=== PATIENT | female | born 1960 | race Caucasian/White ===

== ENCOUNTER 2017-02-22 19:13 | Emergency (ER) | payer BC ==
[2017-02-22 19:23] VITALS: PULSE 87; TEMP 98.9; BMI 24.4
[2017-02-22] MEDS ORDERED: IBUPROFEN 600 MG TABLET (FP) PO ONE ×2 (20:18→20:21)
--- NOTE | 2017-02-22 20:22 | PDOC ---
History of Present Illness - General Chief Complaint: Laceration Stated Complaint: LH 2ND FINGER LAC Time Seen by Provider: 02/22/17 19:17 History Source: Patient Exam Limitations: No Limitations - History of Present Illness Initial Comments: 02/22/17 21:50 56 year old female, Right hand dominant, no past medical history, p/w left 2nd digit distal avulsion. Pt was chopping kale for a salad, when she accidentally slipped. Sustained a small avulsion skin injury to distal 2nd left digit. Lost a small portion of the nail. Pt is allergic to tetanus. Able to flex and extend the entire digit. Denies numbness, weakness. Occurred today. Past History - Past Medical History Allergies/Adverse Reactions: Allergies Allergy/AdvReac Type Severity Reaction Status Date / Time tetanus and diphtheria Allergy Verified 02/22/17 19:20 toxoids Home Medications: Ambulatory Orders NK [No Known Home Medication] 02/22/17 COPD: No - Immunization History Immunization Up to Date: (ALLERGIC) - Suicide/Smoking/Psychosocial Hx Smoking History: Never smoked Review of Systems - Review of Systems Able to Perform ROS?: Yes Comments:: 02/22/17 21:54 GENERAL/CONSTITUTIONAL: No fever, weakness. HEAD, EYES, EARS, NOSE AND THROAT: No change in vision. No ear pain or discharge. No sore throat. CARDIOVASCULAR: No chest pain or shortness of breath. RESPIRATORY: No cough, wheezing, or hemoptysis. GASTROINTESTINAL: No abdominal pain, nausea, vomiting, diarrhea, or decreased PO intolerance. GENITOURINARY: No dysuria, frequency, or change in urination. MUSCULOSKELETAL: No joint or muscle swelling or pain. No neck or back pain. SKIN: left 2nd digit finger skin avulsion NEUROLOGIC: No headache, vertigo, loss of consciousness, or change in strength/ sensation. ENDOCRINE: No increased thirst. No abnormal weight change. HEMATOLOGIC/LYMPHATIC: No anemia, easy bleeding, or history of blood clots. ALLERGIC/IMMUNOLOGIC: No hives or skin allergy. *Physical Exam - Vital Signs Last Vital Signs Temp Pulse Resp BP Pulse Ox 98.9 F 87 18 193/125 96 02/22/17 19:21 02/22/17 19:21 02/22/17 19:21 02/22/17 19:21 02/22/17 19:21 - Physical Exam Comments: 02/22/17 21:55 GENERAL: Awake, alert, and fully oriented, in no acute distress. HEAD: No signs of trauma EYES: PERRLA, EOMI, sclera anicteric, conjunctiva clear ENT: Auricles normal inspection, hearing grossly normal, nares patent, NECK: Normal ROM, supple EXTREMITIES: Normal range of motion, no edema. No clubbing or cyanosis. No cords, erythema, or tenderness LUE: 2+ radial pulse. sensation intact throughout. 5/5 strength - median/radian/ ulnar nerve. < 2 sec cap refill. Pt will full flexion and extension of all digits. Small skin avulsion distal to the left 2nd digit with some loss of nail. No lacerations. NEUROLOGICAL: Cranial nerves II through XII grossly intact. Normal speech, normal gait SKIN: Warm, Dry, normal turgor, no rashes or lesions noted. Procedures - Additional Procedures Progress: 02/22/17 21:56 Wound soaked in normal saline and beta - iodine Dermabond applied to the nail bed with the bleeding. Medical Decision Making - Medical Decision Making 02/22/17 21:57 Vital Signs Temp Pulse Resp BP Pulse Ox 98.9 F 87 18 157/103 96 02/22/17 19:21 02/22/17 19:21 02/22/17 19:21 02/22/17 20:25 02/22/17 19:21 Pt is currently taking augmentin for her URI. Has five more days. I had advised her to take the augmentin for wound prophylaxis. The wound had stopped bleeding with the dermabond. Xeroform was applied. Fever and wound precautions given. Discharge diagnosis: finger avulsion I discussed the physical exam findings, ancillary test results and final diagnoses with the patient. I answered all of the patient's questions. The patient was satisfied with the care received and felt comfortable with the discharge plan and treatment plan. The patient will call their primary care physician within 24 hours to arrange follow-up and will return to the Emergency Department with any new, persistant or worsening symptoms. *DC/Admit/Observation/Transfer Diagnosis at time of Disposition: Finger avulsion Qualifiers: Encounter type: initial encounter Qualified Code(s): S61.209A - Unspecified open wound of unspecified finger without damage to nail, initial encounter - Discharge Dispostion Disposition: HOME Condition at time of disposition: Stable Admit: No - Referrals - Patient Instructions Printed Discharge Instructions: DI for Avulsion Laceration (Not Requiring Sutures) Additional Instructions: Please cover your wound with a xeroform dressing and gauze. Change dressing once daily. Elevate the hand. Continue to take your augmentin every 12 hours as prior. 600 mg ibuprofen every 6 hours as needed for pain. If you notice any redness or pus or fever, please call your doctor or return to the ER for further evaluation. - Post Discharge Activity
[2017-02-22 20:26] VITALS: BP 157/103
== END 2017-02-22 20:29 | disposition home or self-care (01) ==
LOC: FER 19:13
PROC: 0HQGXZZ Repair Left Hand Skin, External Approach (ICD-10-PCS; principal; 2017-02-22)
DX: S61.311A Laceration without foreign body of left index finger with damage to nail, initial encounter (principal); W26.0XXA Contact with knife, initial encounter; Y93.G3 Activity, cooking and baking; Y92.000 Kitchen of unspecified non-institutional (private) residence as the place of occurrence of the external cause
CPT/HCPCS: 99282-25

== ENCOUNTER 2019-01-18 20:11 | Emergency (ER) | payer BC ==
[2019-01-18 20:22] VITALS: BP 155/84; PULSE 100; TEMP 98.3; BMI 23.4
[2019-01-18] MEDS ORDERED: KETOROLAC TROMETHAMINE 60 MG/2 ML VIAL IM ONE (20:36)
[2019-01-18] MEDS ORDERED: KETOROLAC TROMETHAMINE 60 MG/2 ML VIAL ONE (20:37)
--- NOTE | 2019-01-18 21:06 | PDOC ---
Documentation entered by Katarina Rodríguez SCRIBE, acting as scribe for Axel Price MD. Axel Price MD: This documentation has been prepared by the paulaibe, Katarina Rodríguez SCRIBE, under my direction and personally reviewed by me in its entirety. I confirm that the documentation accurately reflects all work, treatment, procedures, and medical decision making performed by me. History of Present Illness - General Chief Complaint: Injury Stated Complaint: LT SHOULDER INJURY Time Seen by Provider: 01/18/19 20:22 History Source: Patient Exam Limitations: No Limitations - History of Present Illness Initial Comments: 01/18/19 21:09 Patient is a 58 year old female who presents to the ED with an injury to her left shoulder. Patients states she was trying to get her [place] from her attic when she missed a step prompting her fall. Patient denies any trauma to her head or LOC. Patient denies any other injuries. PAST MEDICAL HISTORY: no significant history PAST SURGICAL HISTORY: no significant history FAMILY HISTORY: no pertinent history SOCIAL HISTORY: Pt lives with family and is employed. MEDICATIONS: reviewed ALLERGIES: tetanus and diphtheria toxoids General: No fevers or chills, no weakness, no weight loss HEENT: No change in vision. No sore throat,. No ear pain CardioVascular: No chest pain or shortness of breath Respiratory:No cough, or wheezing. Gastrointestinal: no nausea, vomiting, diarrhea or constipation, No rectal bleeding Genitourinary: No dysuria, hematuria, or frequency Musculoskeletal:+left shoulder pain No joint or swelling Neurologic: No headache, vertigo, dizziness or loss of consciousness Psychiatric: nor depression Skin: No rashes or easy bruising Endocrine: no increased thirst or abnormal weight change Allergic: no skin or latex allergy All other systems reviewed and normal General: Well-nourished well-developed individual, no acute distress HEENT: Throat: Normal, tonsils normal, no erythema or exudate Neck: Supple, no meningeal signs, no lymphadenopathy Eyes::Pupils equal reactive and round, extraocular motion intact Chest: Nontender to palpation Cardiac: S1-S2 normal, regular rate and rhythm, no murmurs rubs or gallops Respiratory: Lungs clear to auscultation bilateral Abdomen: Soft, nondistended, normal bowel sounds, nontender to palpation diffusely Extremities:+Tenderness on palpation of the anterior and lateral aspect of the shoulder with decreased range of motion secondary to pain, neurovascularly distal intact. Associated contusion with questionable mild deformity of the humeral head. Warm, dry, no cyanosis, clubbing, or edema Skin: No rashes Neuro: Alert and oriented x3, nonfocal exam, grossly intact, normal gait Psych: Normal mood and affect 01/18/19 21:03 Assessment and plan: This is a 58-year-old female who comes in complaining of left shoulder pain. Patient was climbing up some stairs to her attic when she lost her balance and fell landing on her left shoulder. Patient did not hit her head did not pass out denies any other injuries. Patient had a x-ray of her shoulder that does show a comminuted fracture of the humeral neck and head. Neurovascularly patient is intact. Patient put in a sling and given Toradol. Patient also given a prescription for oxycodone that was sent to her pharmacy a total of 20 tablets Patient was referred to Dr. Cantor for follow-up Past History - Past Medical History Allergies/Adverse Reactions: Allergies Allergy/AdvReac Type Severity Reaction Status Date / Time tetanus and diphtheria Allergy Verified 02/22/17 19:20 toxoids Home Medications: Ambulatory Orders Oxycodone HCl 5 mg PO Q4H PRN #20 capsule MDD 8 01/18/19 COPD: No - Immunization History Immunization Up to Date: No (ALLERGIC) - Psycho Social/Smoking Cessation Hx Smoking History: Never smoked *Physical Exam - Vital Signs Last Vital Signs Temp Pulse Resp BP Pulse Ox 98.3 F 100 H 18 155/84 100 01/18/19 20:13 01/18/19 20:13 01/18/19 20:13 01/18/19 20:13 01/18/19 20:13 ED Treatment Course - RADIOLOGY Radiology Studies Ordered: Category Date Time Status SHOULDER-LEFT [RAD] Stat Radiology 01/18/19 20:17 Taken - Medications Given in the ED: ED Medications Discontinued Medications Generic Name Dose Route Start Last Admin Trade Name Freq PRN Reason Stop Dose Admin Ketorolac Tromethamine 60 mg 01/18/19 20:36 01/18/19 20:39 Toradol Injection - IM 01/18/19 20:37 60 mg ONCE ONE Administration Discharge - Discharge Information Problems reviewed: Yes Clinical Impression/Diagnosis: Shoulder fracture, left Qualifiers: Encounter type: initial encounter Fracture type: closed Qualified Code(s): S42.92XA - Fracture of left shoulder girdle, part unspecified, initial encounter for closed fracture Condition: Stable Disposition: HOME - Admission No - Additional Discharge Information Prescriptions: Oxycodone HCl 5 mg PO Q4H PRN #20 capsule MDD 8 PRN Reason: Pain - Follow up/Referral Referrals: Akira Cantor MD [Staff Physician] - - Patient Discharge Instructions Additional Instructions: Take oxycodone as needed for the pain you can take 1 to 2 tablets as often as every 4-6 hours. Wear your sling until you see the orthopedist. Call the orthopedist Dr. Cantor on Sunday and get an appointment to follow-up. Return to the emergency department immediately with ANY new, persistent or worsening symptoms. Continue any medications as previously prescribed by your physician. You should follow up with your primary doctor as soon as possible regarding today's emergency department visit. . Please make sure your doctor reviews the results of your emergency evaluation. Thank you for coming to the Emergency Department today for your care. It was a pleasure to see you today. Please note that your evaluation is INCOMPLETE until you follow-up with your doctor. - Post Discharge Activity
== END 2019-01-18 21:09 | disposition home or self-care (01) ==
LOC: FER 20:11
PROC: 3E0233Z Introduction of Anti-inflammatory into Muscle, Percutaneous Approach (ICD-10-PCS; principal; 2019-01-18)
DX: S42.92XA Fracture of left shoulder girdle, part unspecified, initial encounter for closed fracture (principal); W11.XXXA Fall on and from ladder, initial encounter; Y92.009 Unspecified place in unspecified non-institutional (private) residence as the place of occurrence of the external cause; Y93.9 Activity, unspecified; Z88.8 Allergy status to other drugs, medicaments and biological substances
CPT/HCPCS: 73030-TC-LT-FY; 99282-25

== ENCOUNTER 2019-01-24 06:20 | Day surgery (SDC) | payer BC ==
[2019-01-22 15:05] VITALS: BMI 25.4
[2019-01-24] MEDS ORDERED: MIDAZOLAM HCL 2 MG/2 ML SINGLE DOSE VIAL ONE ×2 (07:31→07:49)
[2019-01-24] MEDS ORDERED: ROPIVACAINE HCL 0.5% 30ML VIAL ONE (07:31)
[2019-01-24] MEDS ORDERED: VANCOMYCIN 1,000 MG VIAL (RESTRICTED TO ID ONLY) ONE (07:36)
[2019-01-24] MEDS ORDERED: PROPOFOL 20 ML ONE ×7 (07:49→11:57)
[2019-01-24] MEDS ORDERED: SUCCINYLCHOLINE CHLORIDE 200 MG/10 ML SYRINGE ONE (07:49)
[2019-01-24] MEDS ORDERED: ceFAZolin SODIUM 1 GM VIAL ONE (08:06)
[2019-01-24] MEDS ORDERED: TRANEXAMIC ACID 1000 MG/10 ML VIAL ONE ×2 (08:08→08:54)
--- NOTE | 2019-01-24 13:40 | HP ---
CHIEF COMPLAINT: Left humerus fracture PCP: Dr. Olson HISTORY OF PRESENT ILLNESS: 58 year-old female with no reported significant PMH or PSH, with a left proximal humerus fracture and biceps tendon degeneration and tear,s/p ORIF proximal humerus fracture and biceps tenodesis today with Dr. Niño. PAST MEDICAL HISTORY: None reported PAST SURGICAL HISTORY: None reported Social History: Smoking: no Alcohol: wine with dinner Drugs: no Family history: mother HTN; father DMII, HTN Allergies Tetanus Vaccines and Toxoid Allergy (Severe, Verified 01/24/19 06:53) Swelling HOME MEDICATIONS: Home Medications Medication Instructions Recorded Oxycodone HCl 5 mg PO Q4H PRN #20 capsule MDD 8 01/18/19 Acetaminophen 1 - 2 tab PO ASDIR PRN 01/22/19 REVIEW OF SYSTEMS POST-OP CONSTITUTIONAL: +fever Absent: fever, chills, diaphoresis, generalized weakness, malaise, loss of appetite, weight change HEENT: Absent: rhinorrhea, nasal congestion, throat pain, throat swelling, difficulty swallowing, mouth swelling, ear pain, eye pain, visual changes CARDIOVASCULAR: Absent: chest pain, syncope, palpitations, irregular heart rate, lightheadedness , peripheral edema RESPIRATORY: Absent: cough, shortness of breath, dyspnea with exertion, orthopnea, wheezing, stridor, hemoptysis GASTROINTESTINAL: Absent: abdominal pain, abdominal distension, nausea, vomiting, diarrhea, constipation, melena, hematochezia GENITOURINARY: Absent: dysuria, frequency, urgency, hesitancy, hematuria, flank pain, genital pain MUSCULOSKELETAL: +pain at surgical site Absent: myalgia, arthralgia, joint swelling, back pain, neck pain SKIN: Absent: rash, itching, pallor HEMATOLOGIC/IMMUNOLOGIC: Absent: easy bleeding, easy bruising, lymphadenopathy, frequent infections ENDOCRINE: Absent: unexplained weight gain, unexplained weight loss, heat intolerance, cold intolerance NEUROLOGIC: Absent: headache, focal weakness or paresthesias, dizziness, unsteady gait, seizure, mental status changes, bladder or bowel incontinence PSYCHIATRIC: +expression of feeling very anxious Absent: depression, suicidal or homicidal ideation, hallucinations. PHYSICAL EXAMINATION Vital Signs - 24 hr 01/24/19 07:02 Temperature 99 F Pulse Rate 90 Respiratory 18 Rate Blood Pressure 155/86 O2 Sat by Pulse 98 Oximetry (%) GENERAL: Awake, alert, and fully oriented, in no acute distress. HEAD: Normal with no signs of trauma. EYES: Pupils equal, round and reactive to light, extraocular movements intact, sclera anicteric, conjunctiva clear. EARS, NOSE, THROAT: Ears normal, nares patent, oropharynx clear without exudates. Moist mucous membranes. NECK: Normal range of motion, supple without lymphadenopathy, JVD, or masses. LUNGS: Breath sounds equal, clear to auscultation bilaterally. No wheezes, and no crackles. No accessory muscle use. HEART: Regular rate and rhythm, normal S1 and S2 ABDOMEN: Soft, nontender, not distended UPPER EXTREMITIES: 2+ pulses, warm, well-perfused. No cyanosis. No clubbing. No peripheral edema. LOWER EXTREMITIES: 2+ pulses, warm, well-perfused. No calf tenderness. No peripheral edema. NEUROLOGICAL: Cranial nerves II-XII intact. Normal speech. PSYCHIATRIC: Cooperative. Good eye contact. Anxious. Pre op BUN 10.7 Cr 0.6 Hgb 11.4 Intra Op EBL 50mL ASSESSMENT/PLAN: 58 year-old female with no reported significant PMH or PSH, is s/p left proximal humerus fracture ORIF today with Dr. Niño. Left proximal humerus fracture ORIF --POD #0 --perioperative antibiotics: Vanc 1g x 1; Ancef 2g q8h x 3 doses --start ASA 325mg daily tomorrow --incentive spirometry --labs in am --pain managment regimen discussed this evening with Dr. Niño and modified, orders in FEN Fluids: LR@125mL/hr Electrolytes: replete as indicated Nutrition: regular diet DVT prophylaxis: OOB, ambulation, SCDs, TEDs Physical therapy Dispo: continues to require inpatient care. Full code. Visit type - Emergency Visit Emergency Visit: No - New Patient This patient is new to me today: Yes Date on this admission: 01/24/19 - Critical Care Critical Care patient: No
[2019-01-24] MEDS ORDERED: ONDANSETRON 4 MG/2 ML VIAL IVPUSH PRN (14:09)
[2019-01-24] MEDS ORDERED: oxyCODONE HCL 5 MG TABLET PO PRN ×2 (14:09→14:19)
[2019-01-24] MEDS ORDERED: LACTATED RINGERS SOLUTION 1,000 ML IV SCH (14:15)
[2019-01-24] MEDS ORDERED: traMADol HCL 50 MG TABLET PO PRN (14:19)
--- NOTE | 2019-01-24 15:45 | OPR ---
Date of Procedure: 01/24/2019 Procedure: Left Shoulder- 1. Open Reduction and Internal Fixation Proximal Humerus Fracture (15289). 2. Biceps tenodesis (34743). Preoperative Diagnoses: 1. Left Proximal Humerus Fracture. Postoperative Diagnoses: 1. Left Proximal Humerus Fracture. 2. Biceps tendon degeneration and tear. Surgeon: Sandro Niño DO Assistants: Chester Xiao DO Anesthesia: General anesthesia, IV regional with interscalene nerve block. Estimated Blood Loss: 50mL Drains: None Total IV Fluids: Per anesthesia record Specimens: None Implants: [employer] Proximal Humerus Cage (Medium) with plate and screws, (4) # 2 Fiberwire Complications: None Disposition: PACU Condition: Hemodynamically stable Indications: Veena Lund presented to us with left shoulder pain after a mechanical fall. Radiographs revealed a comminuted proximal humerus fracture with significant varus and posterior angulation of the articular segment. The patient was indicated for an open reduction and internal fixation with metal hardware. I felt that she was an appropriate candidate for surgery due to fracture pattern noted above, her pre-injury activity level, and her desire to return to her pre-injury level of function. She ultimately elected to proceed with surgical intervention after discussion of the risks, benefits, alternatives. We discussed risks including but not limited to, bleeding, pain, infection, scarring, damage to neurovascular structures, blood clots, pulmonary embolus, need for additional surgery, incomplete relief of pain, and incomplete return of function. She expressed understanding and wished to proceed. She underwent preoperative medical evaluation clearance and optimization prior to surgery. Procedure Details: She was identified in the preoperative area. The left shoulder was marked as the operative site and consent was completed and confirmed. An interscalene block was performed by a member of the anesthesia team. She was later transferred to the operating room and placed in supine position the operating room. She was repositioned into beach chair with all bony prominences appropriately padded. The neck was in neutral alignment. A surgical time-out was performed identifying the correct patient, procedure, and site. Antibiotics were given within 1 hour prior to surgical incision. The upper extremity was prepped and draped in standard sterile fashion. Proximal humerus fracture open reduction and internal fixation with internal metal cage: We began the procedure with a standard deltopectoral approach with the incision extending from just lateral to the coracoid distally to the mid aspect of the humeral shaft laterally. Sharp dissection was carried out through the subcutaneous tissues. Self-retaining retractors were placed. Subcutaneous flaps were developed. We identified the deltopectoral interval as well as the cephalic vein. We developed this interval protecting and mobilizing the cephalic vein laterally. We protected the cephalic vein throughout the course of the surgery and it was intact at its completion. The subdeltoid plane was developed inferiorly as well as superiorly in the subacromial space. Retractors were placed in the space. We mobilized the clavipectoral fascia dividing it just lateral to the conjoined tendon. We identified the long head of biceps tendon, divided at tendon sheath, and tenotomized it. We tagged it with a #2 Fiberwire. It was ultimately tenodesed into the upper portion of the pectoralis border with #2 Fiberwire stitches in a [id number] configuration achieving excellent fixation of the tendon into the pectoralis major tendons. We followed the biceps tendon superiorly into the rotator cuff interval and divided it with a curved Poon. The remaining length of the biceps tendon was removed. The proximal humerus was fractured with varus angulation and posterior malalignment of the humeral head. The lesser tuberosity was attached to the articular segment. There was comminution of the anterior and medial aspects of the proximal shaft, and a nondisplaced comminuted greater tuberosity fragment. We began our reduction by tagging the supraspinatus and infraspinatus at the bone tendon junction with #2 Fiberwire stitches. The subscapularis was also tagged with a #2 FiberWire stitch. We then reduced the fracture by derotating the humeral head. We held the large articular segment reduced to the humeral shaft and provisionally fixed it with k-wires. We selected and placed a proximal humeral plate. We used biplane fluoroscopy to position the plate appropriately along the proximal humerus lateral to the bicipital groove. The plate was provisionally fixed to the proximal humerus with k-wires. A cortical screw was used distally to apply the plate against the proximal humeral shaft. Once this held in place, we selected and placed a medium cage through the plate and fixated it with a locking screw. We then placed additional locking screws from the plate into the humeral head and through the cage. We used biplanar fluoroscopy to determine the screw position. Locking screws were placed in the head and an additional cortical screw was placed to the humeral shaft. A cannulated screw and washer was additionally placed through the greater tuberosity fragment. This gave us excellent stability of the fracture repair construct. After the screws were placed, we ranged the arm and this demonstrated excellent stability of the fracture repair. There were no screws that were extending beyond the head and the fracture repair had good stability. We then turned our attention to suture fixation of the tuberosity sutures into the plate. We passed the previous Fiberwire sutures through the plate and secured this and tied them down. A small piece of broken needle tip was noted and identified on fluoroscopy in the soft tissues. The wound was explored and thoroughly irrigated with 3L of saline solution. Ultimately, it was felt that it would cause more harm to the patient in order to increase dissection and expose the needle fragment, and it was left insitu. The wound was closed in layered fashion. The deltopectoral interval was closed with #1 Vicryl stitch. The wound was then closed in layers with buried 2-0 Vicryl stitches followed by a 3-0 Monocryl skin closure with Dermabond for the skin. The shoulder was then sterilely dressed, placed in an arm immobilizer with abduction pillow. The patient was transferred to the recovery room in stable condition. I spoke to the patient after the case and informed them of the above findings. Post-operative Details: Postoperative rehabilitation: Proximal humerus ORIF protocol. She will remain in a sling for 4 weeks. Pendulums. No strengthening for at least 3-4 months. Attestation for cutter first: Dr. Chester Xiao acted as the cutter first.
[2019-01-24] MEDS: ACETAMINOPHEN 325 MG TABLET (FP) PO SCH ×2 (15:46→21:03)
[2019-01-24] MEDS: CEFAZOLIN 2 GM/D5W 2 GM/50 ML ML IVPB SCH (15:46)
[2019-01-24] MEDS: oxyCODONE HCL 5 MG TABLET PO PRN ×2 (16:17→21:11)
[2019-01-24] MEDS ORDERED: VANCOMYCIN 1 GM in D5W (PRE-DOCKED) 1,000 MG/250 ML IVPB ONE (20:00)
[2019-01-24] MEDS: oxyCODONE HCL 5 MG TABLET PO SCH (21:45)
[2019-01-24] MEDS ORDERED: morphine SULFATE 4 MG/ML VIAL IVPUSH PRN (21:46)
[2019-01-24] MEDS: oxyCODONE HCL 10 MG SUSTAINED ACTING TABLET PO SCH (22:42)
[2019-01-25] MEDS: CEFAZOLIN 2 GM/D5W 2 GM/50 ML ML IVPB SCH ×2 (00:08→08:30)
[2019-01-25] MEDS: ACETAMINOPHEN 325 MG TABLET (FP) PO PRN ×2 (03:07→10:07)
[2019-01-25] MEDS: oxyCODONE HCL 5 MG TABLET PO SCH ×5 (03:19→13:18)
[2019-01-25] MEDS ORDERED: ACETAMINOPHEN 1000 MG/100 ML VIAL (NON FORMULARY) IVPB PRN (04:00)
[2019-01-25] MEDS ORDERED: ACETAMINOPHEN 325 MG TABLET (FP) PO PRN (06:00)
--- NOTE | 2019-01-25 08:06 | PN ---
Progress Note (short form) - Note Progress Note: ORTHOPEDIC SURGERY PROGRESS NOTE Department of Orthopedic Surgery SUBJECTIVE No acute events overnight. No complaints currently. Denies chest pain, shortness of breath, or calf pain. No nausea or vomiting. Tolerating oral intake. Pain control difficult overnight, but improving. PHYSICAL EXAMINATION General: Alert, oriented, cooperative and no distress. Upper Extremity: Dressing/splint intact; Skin intact, no lesions, rashes or ulcers noted. Muscle mass equal and symmetric to contralateral side. No atrophy noted. No masses or effusions noted. No tenderness to palpation. Full passive and active ROM, free from pain. M/R/U/MSK/AX motor intact; SILT distally; 2+ radial pulses; Cap refill brisk. DVT Exam: No evidence of DVT seen on physical exam; No cords or calf tenderness ; No significant calf/ankle edema. Intake & Output 01/23/19 01/24/19 01/25/19 23:59 23:59 23:59 Intake Total 2000 300 Output Total 1500 400 Balance 500 -100 Intake: IV 1300 IVPB 300 Oral 700 Output: Urine 1500 400 Void 1500 400 Other: Voiding Method Toilet Toilet Bowel Movement No No Weight 130 lb Height 5 ft Body Mass Index (BMI) 25.4 Weight Measurement Method Stated by Patient Active Medications Generic Name Dose Route Start Last Admin Trade Name Freq PRN Reason Stop Dose Admin Acetaminophen 650 mg 01/25/19 02:59 01/25/19 03:07 Tylenol - PO 650 mg Q6H PRN Administration FEVER Aspirin 325 mg 01/25/19 10:00 Ecotrin - PO DAILY ALEJO Cefazolin Sodium/Dextrose 2 gm in 50 mls @ 100 mls/hr 01/24/19 16:00 00:08 Ancef 2 Gm Premixed Ivpb - IVPB 01/25/19 08:29 100 mls/hr Q8H ALEJO Administration Lactated Ringer's 1,000 mls @ 125 mls/hr 01/24/19 14:15 Lactated Ringers Solution IV ASDIR ALEJO Morphine Sulfate 4 mg 01/24/19 21:46 Morphine Sulfate IVPUSH Q6H PRN PAIN LEVEL 7 - 10 Ondansetron HCl 4 mg 01/24/19 14:09 Zofran Injection IVPUSH Q6H PRN NAUSEA AND/OR VOMITING Oxycodone HCl 10 mg 01/24/19 22:00 01/24/19 22:42 Oxycontin - PO 01/27/19 14:19 10 mg BID ALEJO Administration Oxycodone HCl 10 mg 01/24/19 21:45 01/25/19 06:05 Roxicodone - PO 10 mg Q6H ALEJO Administration Vital Signs (last) Temp Pulse Resp BP Pulse Ox 98.7 F 99 H 18 161/83 99 01/25/19 07:00 01/25/19 07:00 01/25/19 07:00 01/25/19 07:00 01/25/19 07:00 ASSESSMENT AND PLAN Veena Lund is a 58 year old female POD #1 status post left proximal humerus ORIF - FU AM Labs - Pain control: Transition to oral pain medications, minimize narcotic use - DVT prophylaxis - Ice/Elevation - Elevate HOB, encourage oral intake - Appreciate medical management (Nutrition optimization, decubitus precautions heel/sacrum) - PT/OT; NWB LUE - Shoulder immobilizer alejandra at all times - Dispo planning
[2019-01-25 08:40] LABS: BASO % 0.3 % (0-2.0); EOS % 0.1 % (0-4.5); HEMATOCRIT 30.7 % (32.4-45.2); HEMOGLOBIN 10.6 GM/dl (10.7-15.3); LYMPH % 17.1 % (8-40); MCH 33.2 pg (25.7-33.7); MCHC 34.6 g/dl (32.0-36.0); MEAN CELL VOLUME 95.9 fl (80-96); MONO % 15.1 % (3.8-10.2); NEUT % 67.4 % (42.8-82.8); PLATELET COUNT 388 K/MM3 (134-434); RDW 12.3 % (11.6-15.6); WHITE BLOOD COUNT 15.4 K/mm3 (4.0-10.8)
[2019-01-25 08:43] LABS: ALBUMIN 3.8 g/dl (3.4-5.0); BILIRUBIN,TOTAL 1.2 mg/dl (0.2-1); CALCIUM 8.9 mg/dl (8.5-10); CREATININE 0.5 mg/dl (0.55-1.3); MAGNESIUM 1.8 mg/dL (1.8-2.4); POTASSIUM 4.6 mmol/L (3.5-5.1); TOT PROT 6.9 g/dl (6.4-8.2)
[2019-01-25] MEDS ORDERED: morphine SULFATE 4 MG/ML VIAL IVPUSH SCH ×2 (08:45→10:15)
--- NOTE | 2019-01-25 09:40 | PN ---
Physical Exam: SUBJECTIVE: Patient seen and examined. Pt c/o left arm pain, and feeling warm, denies any chills, cp, sob palpitations , abdominal pain, N/V/D or urinary symptoms. OBJECTIVE: Vital Signs Period Temp Pulse Resp BP Sys/White Pulse Ox Last 24 Hr 98.7 F-102 F 82-105 14-19 104-161/59-85 95-99 GENERAL: The patient is awake, alert, and fully oriented, in no acute distress. HEAD: Normal with no signs of trauma. EYES: PERRL, extraocular movements intact, sclera anicteric, conjunctiva clear. No ptosis. ENT: Ears normal, nares patent, oropharynx clear without exudates, moist mucous membranes. NECK: Trachea midline, full range of motion, supple. LUNGS: Breath sounds equal, clear to auscultation bilaterally, no wheezes, no crackles, no accessory muscle use. HEART: Regular rate and rhythm, S1, S2 without murmur, rub or gallop. ABDOMEN: Soft, nontender, nondistended, normoactive bowel sounds, no guarding, no rebound, no hepatosplenomegaly, no masses. EXTREMITIES: 2+ pulses, warm, well-perfused, no edema. left arm dsg intact and immobilizer in place NEUROLOGICAL: Cranial nerves II through XII grossly intact. Normal speech, gait not observed. PSYCH: Normal mood, normal affect. SKIN: Warm, dry, normal turgor, no rashes or lesions noted Laboratory Results - last 24 hr 01/25/19 01/25/19 07:55 07:55 WBC 15.4 H RBC 3.20 L Hgb 10.6 L Hct 30.7 L MCV 95.9 MCH 33.2 MCHC 34.6 RDW 12.3 Plt Count 388 MPV 8.0 Absolute Neuts (auto) 10.5 Neutrophils % 67.4 Lymphocytes % 17.1 Monocytes % 15.1 H Eosinophils % 0.1 Basophils % 0.3 Sodium 132 L Potassium 4.6 Chloride 95 L Carbon Dioxide 27 Anion Gap 10 BUN 7.0 Creatinine 0.5 L Est GFR (CKD-EPI)AfAm 125.40 Est GFR (CKD-EPI)NonAf 108.19 Random Glucose 137 H Calcium 8.9 Magnesium 1.8 Total Bilirubin 1.2 H AST 63 H ALT 51 Alkaline Phosphatase 79 Total Protein 6.9 Albumin 3.8 Active Medications Generic Name Dose Route Start Last Admin Trade Name Freq PRN Reason Stop Dose Admin Acetaminophen 650 mg 01/25/19 02:59 01/25/19 03:07 Tylenol - PO 650 mg Q6H PRN Administration FEVER Aspirin 325 mg 01/25/19 10:00 Ecotrin - PO DAILY [facility] Lactated Ringer's 1,000 mls @ 125 mls/hr 01/24/19 14:15 Lactated Ringers Solution IV ASDIR ALEJO Morphine Sulfate 4 mg 01/25/19 08:45 Morphine Sulfate IVPUSH Q4H ALEJO Ondansetron HCl 4 mg 01/24/19 14:09 Zofran Injection IVPUSH Q6H PRN NAUSEA AND/OR VOMITING Oxycodone HCl 10 mg 01/24/19 22:00 01/24/19 22:42 Oxycontin - PO 01/27/19 14:19 10 mg BID ALEJO Administration Oxycodone HCl 10 mg 01/25/19 08:45 Roxicodone - PO Q4H [facility] ASSESSMENT/PLAN: 58 year-old female with no reported significant PMH or PSH, is s/p left proximal humerus fracture ORIF today with Dr. Niño. *Left proximal humerus fracture ORIF -s/p ORIF of Proximal Humerus Fracture -POD #1 - pain control - management per sx -encourage to use IS - started on ASA -PT/OT; NWB LUE - Shoulder immobilizer on at all times, Ice/Elevation - low grade fever overnight, wbc 15.4 9 baseline normal wbc)? reactive - s/p perioperative antibiotics: Vanc 1g x 1; Ancef 2g q8h x 3 doses - will check UA and culture * Hyponatremia - on IVF - will monitor urine studies and serum osmolality FEN Fluids: LR@125mL/hr Electrolytes: replete as indicated Nutrition: regular diet DVT prophylaxis: OOB, ambulation, SCDs, TEDs. Pt requesting discharge. Spoke with surgeon Dr. Niño, cleared for discharge,leukocytosis,low grade fever likely reactive.rec out tp surgical followup next week. Dispo: Will DC home later today Full code. Visit type - Emergency Visit Emergency Visit: Yes Care time: The patient presented to the Emergency Department on the above date and was hospitalized for further evaluation of their emergent condition. - New Patient This patient is new to me today: Yes Date on this admission: 01/25/19 - Critical Care Critical Care patient: No
[2019-01-25] MEDS ORDERED: DOCUSATE SODIUM 100 MG CAPSULE (FP) PO PRN (09:54)
[2019-01-25] MEDS ORDERED: SENNOSIDES 8.6MG TABLET (FP) PO PRN (09:54)
[2019-01-25] MEDS ORDERED: ASPIRIN 325 MG ENTERIC COATED TABLET (FP) PO SCH (10:00)
[2019-01-25] MEDS ORDERED: morphine SULFATE 4 MG/ML VIAL IVPUSH PRN ×2 (10:04→10:09)
[2019-01-25] MEDS: oxyCODONE HCL 10 MG SUSTAINED ACTING TABLET PO SCH (10:08)
--- NOTE | 2019-01-25 14:40 | DS ---
Physical Exam: SUBJECTIVE: Patient seen and examined OBJECTIVE: Vital Signs Period Temp Pulse Resp BP Sys/White Pulse Ox Last 24 Hr 98.6 F-102 F 86-105 18-19 116-161/59-85 95-99 PHYSICAL EXAM GENERAL: The patient is awake, alert, and fully oriented, in no acute distress. HEAD: Normal with no signs of trauma. EYES: PERRL, extraocular movements intact, sclera anicteric, conjunctiva clear. ENT: Ears normal, nares patent, oropharynx clear without exudates, moist mucous membranes. NECK: Trachea midline, full range of motion, supple. LUNGS: Breath sounds equal, clear to auscultation bilaterally, no wheezes, no crackles, no accessory muscle use. HEART: Regular rate and rhythm, S1, S2 without murmur, rub or gallop. ABDOMEN: Soft, nontender, nondistended, normoactive bowel sounds, no guarding, no rebound, no hepatosplenomegaly, no masses. EXTREMITIES: 2+ pulses, warm, well-perfused, no edema. Left arm dsg intact and immobilizer in place NEUROLOGICAL: Cranial nerves II through XII grossly intact. Normal speech, gait not observed. PSYCH: Normal mood, normal affect. SKIN: Warm, dry, normal turgor, no rashes or lesions noted. LABS Laboratory Results - last 24 hr 01/25/19 01/25/19 07:55 07:55 WBC 15.4 H RBC 3.20 L Hgb 10.6 L Hct 30.7 L MCV 95.9 MCH 33.2 MCHC 34.6 RDW 12.3 Plt Count 388 MPV 8.0 Absolute Neuts (auto) 10.5 Neutrophils % 67.4 Lymphocytes % 17.1 Monocytes % 15.1 H Eosinophils % 0.1 Basophils % 0.3 Sodium 132 L Potassium 4.6 Chloride 95 L Carbon Dioxide 27 Anion Gap 10 BUN 7.0 Creatinine 0.5 L Est GFR (CKD-EPI)AfAm 125.40 Est GFR (CKD-EPI)NonAf 108.19 Random Glucose 137 H Calcium 8.9 Magnesium 1.8 Total Bilirubin 1.2 H AST 63 H ALT 51 Alkaline Phosphatase 79 Total Protein 6.9 Albumin 3.8 HOSPITAL COURSE: Date of Admission:01/24/19 Date of Discharge: 01/25/19 This is a 58 year-old female with no reported significant PMH or PSH, who presented ER after a mechanical fall, imaging ruled in for Left proximal humerus fracture. Pt underwent ORIF by Dr. Nioñ on 01/24/19. Pt remains clinically stable. Sx rec NWB LUE to use shoulder immobilizer on at all times, Ice/Elevation . Pain control and encouraged to use incentive spirometer. To continue on ASA 325mg daily. * Fever and leukocytosis: Spoke with surgeon Dr. Niño, cleared for discharge, leukocytosis,low grade fever likely reactive.rec out tp surgical followup next week. s/p perioperative antibiotics: Vanc 1g x 1; Ancef 2g q8h x 3 doses. Denies sob cough or urinary symptoms. * Hyponatremia : S/p IVF, Na 132, previous lab on 01/20/19 showed, Na level 130 Minutes to complete discharge: 35 Discharge Summary Problems reviewed: Yes Reason For Visit: LEFT HUMEROUS FRACTURE Condition: Stable - Instructions Diet, Activity, Other Instructions: Regular diet. Post op instructions as recommended by ( given to pt). pain meds and ASA ordered b SX Referrals: Ehsan Corbin MD [Staff Physician] - 1 Week (1- 2 weeks.) Sandro Niño DO [Staff Physician] - 1 Week ( early next week ) Disposition: HOME - Home Medications Comprehensive Discharge Medication List: Ambulatory Orders Oxycodone HCl 5 mg PO Q4H PRN #20 capsule MDD 8 01/18/19 Acetaminophen 1 - 2 tab PO ASDIR PRN 01/22/19 This patient is new to me today: Yes Date on this admission: 01/25/19 Emergency Visit: Yes Care time: The patient presented to the Emergency Department on the above date and was hospitalized for further evaluation of their emergent condition. Critical Care patient: No - Discharge Referral Referred to [facility] Med P.C.: No
[2019-01-25 15:47] LABS: EPITHELIAL CELLS FEW /hpf
[2019-01-25 16:07] VITALS: BP 136/64; PULSE 89; TEMP 99
== END 2019-01-25 16:17 | disposition home or self-care (01) ==
LOC: FASU 06:20 → SUATTDRO 06:20 → FM/S 14:23 → FASU 01-25 16:17
PROVIDERS: ATTEND Nurse Practitioner Family
PROC: 0LS40ZZ Reposition Left Upper Arm Tendon, Open Approach (ICD-10-PCS; 2019-01-24)
PROC: 0PSD04Z Reposition Left Humeral Head with Internal Fixation Device, Open Approach (ICD-10-PCS; principal; 2019-01-24 08:53)
DX: S42.292A Other displaced fracture of upper end of left humerus, initial encounter for closed fracture (principal); S46.212A Strain of muscle, fascia and tendon of other parts of biceps, left arm, initial encounter; X58.XXXA Exposure to other specified factors, initial encounter; Y93.9 Activity, unspecified; Y92.9 Unspecified place or not applicable; Y99.9 Unspecified external cause status
CPT/HCPCS: 23615; 24340; C1713; 36415; 73060-TC-LT-FY; 80053; 81003; 81015; 83735; 83930; 83935; 84300; 85025; 87086; 94760

== ENCOUNTER 2019-11-11 12:09 | Emergency (ER) | payer BC ==
--- NOTE | 2019-11-11 12:33 | TELE ---
HPI Do you have fever,cough or shortness of breath?: No - General Reason For Visit: COVID 19 TEST History Source: Patient Exam Limitations: No Limitations - History of Present Illness 11/11/19 12:30 Patient is a 59-year-old female with no past medical history who participates in a virtual urgent care visit for routine cover testing. 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 She states she is required to have a negative cover test in order to do so. She denies any symptoms at this time. She denies any recent travel outside of the within the last 30 days. She denies any travel outside [facility] within the last 14. The patient is allergic to the tetanus vaccine. Please note: This virtual urgent care visit was done via audio only as I was unable to access the video portion of the visit. Past History - Medical History Allergies/Adverse Reactions: Allergies Allergy/AdvReac Type Severity Reaction Status Date / Time Tetanus Vaccines and Toxoid Allergy Severe Swelling Verified 01/24/19 06:53 Home Medications: Ambulatory Orders Oxycodone HCl 5 mg PO Q4H PRN #20 capsule MDD 8 01/18/19 Acetaminophen 1 - 2 tab PO ASDIR PRN 01/22/19 Aspirin Coated [Ecotrin -] 325 mg PO DAILY #30 tablet. 01/25/19 Docusate Sodium [Colace -] 100 mg PO BID PRN #60 capsule 01/25/19 Sennosides [Senna -] 2 tab PO HS PRN 30 Days tablet 01/25/19 Anemia: No Asthma: No Cancer: No Cardiac Disorders: No CVA: No COPD: No CHF: No Dementia: No Diabetes: No GI Disorders: No Disorders: No HTN: No Hypercholesterolemia: No Liver Disease: No Seizures: No Thyroid Disease: No - Immunization History Immunization Up to Date: No (ALLERGIC) - Psycho-Social/Smoking History Smoking History: Never smoked Have you smoked in the past 12 months: No Review of Systems - Review of Systems Comments:: 11/11/19 12:30 - Review of Systems Able to Perform ROS?: Yes Constitutional: No: Fever, Chills, Loss of Appetite, Night Sweats, Weakness; positive: Routine COVID testing HEENTM: No: Eye Pain, Vision changes, Ear Pain, Throat Pain, Throat Swelling, Mouth Pain, Difficulty Swallowing Respiratory: No: Cough, Shortness of Breath, Wheezing, Sputum Production Cardiac (ROS): No: Chest Pain, Chest Tightness, Palpitations, Irregular Heart Beat, Edema ABD/GI: No: Nausea, Vomiting, Abdominal Pain, Diarrhea : No Dysuria, No Hematuria, No Frequency, No Urgency Musculoskeletal: No: Muscle Pain, Back Pain, Joint Pain, Muscle Weakness, Neck Pain Integumentary: No: Lesions, Rash Neurological: No: Headache, Numbness, Tingling, Weakness, Speech Difficulties *Physical Exam - Physical Exam 11/11/19 12:31 - Physical Exam HEENT: Normal Voice, Hearing Grossly Normal Respiratory/Chest: Speaking in full and complete sentences Neurologic: Fully Oriented, Alert, Normal Mood/Affect, Normal Response - Medical Decision Making 11/11/19 12:32 Assessment: Patient is a 59-year-old female who participated in a virtual urgent care visit for routine COVID testing. Plan: -COVID swab ordered -COVID counseling given, isolation precautions reviewed -Patient to proceed to our [facility] for COVID testing -She understands and agrees with this treatment plan. Discharge Diagnosis at time of Disposition: Counseled about COVID-19 virus infection - Referrals Follow-up Referral(s): Ehsan Corbin MD [Primary Care Provider] - - Patient Instructions Discharge Instructions: [facility]-Coronavirus Instructions, [facility] COVID-19 Isolation Protocol Additional Discharge Instructions: You were seen via a telehealth visit and tested for COVID today. You should follow isolation precautions as per [facility] guidelines. Thank you for participating in our telehealth medicine program. If you have any worsening symptoms such as high fever, shaking chills, profuse vomiting or any other worsening symptoms you should go to your local emergency department immediately or follow up with your primary care doctor immediately. If you become symptomatic: Take Tylenol 650 mg every 6 hours as needed for fever or pain. You may take Robitussin or other [id number] cough syrup. Follow the dosing instructions on the bottle. Warm tea, honey, and salt water gargles may help your symptoms. Please take precautions and self quarantine for 2 weeks and follow-up with your primary care doctor and the Department of Health. Return to the nearest emergency department for shortness of breath, difficulty breathing, chest pain, or if you have any changes in your symptoms. - Discharge Disposition: HOME Condition at time of Disposition: Stable
--- OUTSIDE RECORDS SUMMARY | 2019-11-11 14:12 | XMS ---
:1960 Author Organization [facility] Support Name Relationship Address Phone [employer] Unavailable [address] [facility] [place] [address] ZEESHAN FRAGOSO [address] [phone] [place] [address] Re-disclosure Warning The records that you are about to access may contain information from federally- assisted alcohol or drug abuse programs. If such information is present, then the following federally mandated warning applies: This information has been disclosed to you from records protected by federal confidentiality rules (42 CFR part 2). The federal rules prohibit you from making any further disclosure of this information unless further disclosure is expressly permitted by the written consent of the person to whom it pertains or as otherwise permitted by 42 CFR part 2. A general authorization for the release of medical or other information is NOT sufficient for this purpose. The Federal rules restrict any use of the information to criminally investigate or prosecute any alcohol or drug abuse patient.The records that you are about to access may contain highly sensitive health information, the redisclosure of which is protected by Article 27-F of the [facility] Public Health law. If you continue you may haveaccess to information: Regarding HIV / AIDS; Provided by facilities licensed or operated by the [facility] Office of Mental Health; or Provided by the [facility] Office for People With Developmental Disabilities. If such information is present, then the following [facility] mandated warning applies: This information has been disclosed to you from confidential records which are protected by state law. State law prohibits you from making any further disclosure of this information without the specific written consent of the person to whom it pertains, or as otherwise permitted by law. Any unauthorized further disclosure in violation of state law may result in a fine or chcf sentence or both. A general authorization for the release of medical or other information is NOT sufficient authorization for further disclosure. Insurance Providers Payer name Policy type Policy ID Covered Covered libertarian's Policy P maria luisa / Coverage libertarian ID relationship to [employer] Inf ormation type h[employer]go EPO [id number] EPO [id number] [facility] [facility] [id number] [facility]/ 9 [facility] EPO [id number]
== END 2019-11-11 12:33 | disposition home or self-care (01) ==
LOC: JVIRT 12:09
DX: Z11.59 Encounter for screening for other viral diseases (principal)
CPT/HCPCS: Q3014-GT; U0003

== ENCOUNTER 2019-11-28 12:04 | Emergency (ER) | payer BC ==
--- OUTSIDE RECORDS SUMMARY | 2019-11-28 12:19 | XMS ---
:1960 Author Organization [facility] Support Name Relationship Address Phone [employer] Unavailable [address] [facility] [place] [address] ZEESHAN FRAGOSO [address] [place] [address] ZEESHAN FRAGOSO Spouse [address] [place] [address] Re-disclosure Warning The records that you are [...] is protected by Article 27-F of the [facility] Public Health law. If you continue you may haveaccess to information: Regarding HIV / AIDS; Provided by facilities licensed or operated by the [facility] Office of Mental Health; or Provided by the [facility] Office for People With Developmental Disabilities. If such information is present, then the following [facility] mandated warning applies: This information has been [...] law may result in a fine or care home sentence or both. A general authorization for the release of medical or other information is NOT sufficient authorization for further disclosure. Insurance Providers Payer name Policy type Policy ID Covered Covered democrat's Policy P maria luisa / Coverage democrat ID relationship to [employer] Inf ormation type [employer] EPO [id number] EPO [id number] EMPIRE [id number] [facility]/ 9 [facility] EPO [id number] 9 Results ID Date Data Source [id number] 11/11/2019 03:05:00 PM EDT [facility] Name Value Range Interpretation Description Data Sup porting Code Source(s) Document(s ) SARS [facility] coronavirus 2 RNA This lab was ordered by [facility] and reported by [facility]. Procedure
--- NOTE | 2019-11-28 13:12 | TELE ---
HPI Do you have fever,cough or shortness of breath?: No - General Reason For Visit: COVID 19 TEST History Source: Patient Exam Limitations: No Limitations - History of Present Illness Timing/Duration: unsure Associated Symptoms: reports: denies symptoms 11/28/19 13:10 59-year-old female with no past medical history or smoking history presents via virtual telehealth for cover testing. 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 Patient otherwise has no complaints of fever cough shortness of breath or other related COVID symptoms along with no recent travel or recent sick or possible COVID positive patient's Past History - Travel History Traveled outside of the country in the last 30 days: No Close contact w/someone who was outside of country & ill: No - Medical History Allergies/Adverse Reactions: Allergies Allergy/AdvReac Type Severity Reaction Status Date / Time Tetanus Vaccines and Toxoid Allergy Severe Swelling Verified 01/24/19 06:53 Home Medications: Ambulatory Orders Oxycodone HCl 5 mg PO Q4H PRN #20 capsule MDD 8 01/18/19 Acetaminophen 1 - 2 tab PO ASDIR PRN 01/22/19 Aspirin Coated [Ecotrin -] 325 mg PO DAILY #30 tablet. 01/25/19 Docusate Sodium [Colace -] 100 mg PO BID PRN #60 capsule 01/25/19 Sennosides [Senna -] 2 tab PO HS PRN 30 Days tablet 01/25/19 Anemia: No Asthma: No Cancer: No Cardiac Disorders: No CVA: No COPD: No CHF: No Dementia: No Diabetes: No GI Disorders: No Disorders: No HTN: No Hypercholesterolemia: No Liver Disease: No Seizures: No Thyroid Disease: No - Immunization History Immunization Up to Date: No (ALLERGIC) - Psycho-Social/Smoking History Patient Lives Alone: No Lives with/in: spouse/SO Smoking History: Never smoked Have you smoked in the past 12 months: No Review of Systems - Review of Systems Able to Perform ROS?: Yes Constitutional: No: Symptoms Reported HEENTM: No: Symptoms Reported Respiratory: No: Symptoms reported Cardiac (ROS): No: Symptoms Reported ABD/GI: No: Symptoms Reported : No: Symptoms Reported Musculoskeletal: No: Symptoms Reported Integumentary: No: Symptoms Reported Neurological: No: Symptoms reported Endocrine: No: Symptoms Reported Hematologic/Lymphatic: No: Symptoms Reported *Physical Exam - Physical Exam General Appearance: Yes: Nourished, Appropriately Dressed. No: Apparent Distress HEENT: positive: EOMI Neck: negative: Decreased range of motion Respiratory/Chest: negative: Respiratory Distress Cardiovascular: negative: Edema Gastrointestinal/Abdominal: negative: Distended Extremity: positive: Normal Inspection Integumentary: positive: Normal Color Neurologic: positive: Motor Strength 5/5 (Ambulatory) - Medical Decision Making 11/28/19 13:11 Chief complaint: Here for covid testing no complaints. 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 Plan: COVID test ordered Discharge Diagnosis at time of Disposition: Encounter for laboratory testing for COVID-19 virus - Referrals Follow-up Referral(s): Ehsan Corbin MD [Primary Care Provider] - - Patient Instructions - Discharge Disposition: HOME Condition at time of Disposition: Good
== END 2019-11-28 13:12 | disposition home or self-care (01) ==
LOC: JVIRT 12:04
DX: Z03.818 Encounter for observation for suspected exposure to other biological agents ruled out (principal)
CPT/HCPCS: C9803; Q3014-GT; U0003